=== PATIENT | female | born 1990 | race Caucasian/White ===

== ENCOUNTER 2017-11-14 23:24 | Inpatient (IN) | payer BC ==
[2017-11-14] MEDS ORDERED: Lidocaine 1% 50 ML MDV ONE (23:44)
[2017-11-14] MEDS ORDERED: Oxytocin/Lactated Ringers 10 UNIT/1,000 ML BAG IV ONE (23:44)
[2017-11-14] MEDS ORDERED: Lactated Ringers 2,000 ML ONE (23:44)
[2017-11-15] MEDS ORDERED: fentaNYL 100 MCG/2 ML SDV ONE (00:32)
[2017-11-15] MEDS ORDERED: Bupivacaine/fentaNYL/NS 100 ML Bag ONE (00:33)
[2017-11-15] MEDS ORDERED: Bupivacaine 0.25% 10 ML SDV ONE (02:00)
[2017-11-15] MEDS ORDERED: Ondansetron 4 MG/2 ML SDV IVPUSH PRN (02:35)
[2017-11-15] MEDS ORDERED: Nalbuphine 20 MG/1 ML Amp IVPUSH PRN (02:35)
[2017-11-15] MEDS ORDERED: Sodium Chloride 0.9% 10 ML Syringe FLUSH PRN (02:35)
--- NOTE | 2017-11-15 02:35 | PCM.LDHP ---
L&D History of Present Illness - General Date of Service: 11/14/17 Admit Problem/Dx: Admission Diagnosis/Problem Admission Diagnosis/Problem Source of Information: Patient History Limitations: Reports: No Limitations - History of Present Illness Introduction:: Patient is a 27 y/o who presents at 40 0/7 wks with concerns of ROM. Has been having bothersome contractions since that time. Otherwise doing well. - Related Data Allergies/Adverse Reactions: Allergies Allergy/AdvReac Type Severity Reaction Status Date / Time shellfish derived Allergy Swelling Verified 11/11/17 19:07 Past Medical History HEENT History: Reports: Other (See Below) (Retinal tear) - Past Surgical History HEENT Surgical History: Reports: Oral Surgery, Retinal Social & Family History - Tobacco Use Smoking Status *Q: Never Smoker - Alcohol Use Alcohol Use History: No - Recreational Drug Use Recreational Drug Use: No H&P Review of Systems - Review of Systems: Review Of Systems: See Below General: Reports: No Symptoms Pulmonary: Reports: No Symptoms Cardiovascular: Reports: No Symptoms Gastrointestinal: Reports: No Symptoms Genitourinary: Reports: No Symptoms Musculoskeletal: Reports: No Symptoms L&D Exam - Exam Exam: See Below - OB Specific Contraction Intensity: Moderate to Strong Movement: Active Heart Tones: Present Heart Tones per Min: 140 Heart Rate (FHR) Variability: Moderate (6-25 bmp) Presentation: Vertex - Mcgowan Score Mcgowan Score Cervix Position: Midposition Mcgowan Score Consistency: Soft Mcgowan Score Effacement: 51-70% Mcgowan Score Dilation: 3-4 cm Mcgowan Score 's Station: -1 ,0 Mcgowan Score Total: 9 - Exam General: Alert, Oriented, Cooperative Lungs: Clear to Auscultation, Normal Respiratory Effort Cardiovascular: Regular Rate, Regular Rhythm GI/Abdominal Exam: Soft, Non-Tender Genitourinary: Normal external exam Extremities: Normal Inspection Skin: Warm, Dry, Intact - Patient Data Result Diagrams: 11/14/17 23:40 11/14/17 23:40 - Problem List (1) 40 weeks gestation of SNOMED Code(s): 90890158 ICD Code: Z3A.40 - 40 WEEKS GESTATION OF Status: Acute Current Visit: Yes (2) Thick meconium stained amniotic fluid SNOMED Code(s): 049957428 ICD Code: P96.83 - MECONIUM STAINING Status: Acute Current Visit: Yes Problem List Initiated/Reviewed/Updated: Yes Assessment/Plan Comment:: 27 y/o at 40 0/7 wks presents with SROM * CBC and T&S * Patient with some mild range BP's. Will also order Creatinine, AST, ALT * GBS negative, no need for antibiotics * Allow patient to labor on her own, can add in augmentation if required * Pain management per patient preference * Anticipate
[2017-11-15] MEDS ORDERED: Oxytocin/Lactated Ringers 10 UNIT/1,000 ML BAG IV SCH (02:45)
[2017-11-15] MEDS ORDERED: Lactated Ringers 1,000 ML IV SCH (02:45)
[2017-11-15] MEDS ORDERED: Nalbuphine 20 MG/ML 1 ML Syringe IVPUSH PRN (09:41)
[2017-11-15] MEDS ORDERED: Misoprostol 200 MCG Tab ONE (11:38)
[2017-11-15] MEDS ORDERED: Misoprostol 200 MCG Tab PO ONE (11:57)
--- NOTE | 2017-11-15 11:59 | PCM.DEL ---
L & D Note - General Info Date of Service: 11/15/17 - Delivery Note Labor: Spontaneous Delivery Outcome: Livebirth Delivery Method: Spontaneous Vaginal Delivery-Single Delivery Mode: Vacuum Extraction Presentation: Right Occiput Anterior (BRYNN) Nuchal Cord: None Anesthesia Type: Epidural Amniotic Fluid Description: Meconium Stained Episiotomy Type: None Laceration: 2nd Degree Suture type: Vicryl Suture size: 2-0 Placenta: Intact, Spontaneous Cord: 3 Vessels Estimated Blood Loss: 400 Resuscitation Needed: Yes [place]: Suctioned, Bulb Syringe, Stimulated, Warmed, Mallie Used, Warmer Used Delivery Comments (Free Text/Narrative):: The patient was found to be compete and began pushing. After 2 hours of pushing she was offered pitocin augmentation to which she agreed. After 4 hours of pushing she was becoming more tried. Discussed risks/benefits of assisted delivery and she did desires to proceed. Patient was pushing in the dorsal lithotomy position. Sterile vaginal exam complete/complete/+2 station. head in BRYNN presentation. Maternal pushing effort was good and the pelvis was felt to be adequate for an instrument assisted delivery. Given exhaustion, the decision was made to proceed with vacuum assisted vaginal delivery. The mushroom cup was placed without difficulty with care to avoid the vaginal side patel. Pressure increased to 550 mg Hg at 1022. Subsequent vacuum assisted vaginal delivery with pushing. Delivery of head at 1027 after pulling with 4 consecutive contractions. Total pop offs 0. Suction was removed following delivery of the head. No nuchal cord present. The remainder of the delivered without difficulty. The umbilical cord was clamped and cut and the infant was placed on maternal abdomen. Inspection of the perineum following delivery with a 2nd degree perineal laceration. Vacuum Extractor Progress Note - Alternative Labor Strategies Considered Alternative Labor Strategies Considered:: Reports: Yes Strategies Considered:: Reports: Contraction Intensity Adequate, Position Changes Used to Facilitate Rotation & Descent, Empty Bladder Indications Considered:: Reports: Yes Indications:: Reports: Prolonged 2nd Stage Time Out:: Reports: Yes - Patient Prepared Patient Prepared:: Reports: Yes Informed Consent:: Reports: Verbal Risks: Reports: Yes Risks Include:: Reports: Laceration, Shoulder Dystocia, Maternal Injury Anesthesia/Analgesia Adequate:: Reports: Yes - Probability of Success High Probability of Success:: Reports: Yes Weight Estimated:: Reports: AGA Patient Diabetic:: Reports: No Pelvis Adequate:: Reports: Yes Asynclitic:: Reports: No - Application Time Maximum Application Time & Number of Pop-Offs Predetermined:: Reports: Yes Maximum Pressure Maintained in [place] (cm Hg):: 550 Total Application Time (min): *max=20min: 5 Number of Times Cup Disengaged:: 0 Type of Vacuum Used:: Reports: Cup: Mushroom type - Exit Strategy Exit strategy available:: Reports: Yes and resuscitation teams readily available:: Reports: Yes - General Info Date of Service: 11/15/17 - Patient Data Weight - Most Recent: 90.718 kg I&O - Last 24 Hours: Intake & Output 11/14/17 11/15/17 11/15/17 22:59 06:59 14:59 Intake Total 3000 Balance 3000 Lab Results Last 24 Hours: Laboratory Results - last 24 hr 11/14/17 11/14/17 11/14/17 Range/Units 23:40 23:40 23:40 WBC 12.29 H (3.98-10.04) K/mm3 RBC 4.37 (3.98-5.22) M/mm3 Hgb 12.8 (11.2-15.7) gm/L Hct 38.0 (34.1-44.9) % MCV 87.0 (79.4-94.8) fl MCH 29.3 (25.6-32.2) pg MCHC 33.7 (32.2-35.5) g/dl RDW Std Deviation 44.0 (36.4-46.3) fL Plt Count 165 L (182-369) K/mm3 MPV 11.2 (9.4-12.3) fl Neut % (Auto) 71.6 H (34.0-71.1) % Lymph % (Auto) 17.1 L (19.3-51.7) % [place] % (Auto) 10.4 (4.7-12.5) % Eos % (Auto) 0.3 L (0.7-5.8) Baso % (Auto) 0.2 (0.1-1.2) % Neut # (Auto) 8.79 H (1.56-6.13) K/mm3 Lymph # (Auto) 2.10 (1.18-3.74) K/mm3 [place] # (Auto) 1.28 H (0.24-0.36) K/mm3 Eos # (Auto) 0.04 (0.04-0.36) K/mm3 Baso # (Auto) 0.03 (0.01-0.08) K/mm3 Creatinine 0.9 (0.55-1.02) mg/dL Est Cr Clr Drug Dosing TNP Estimated GFR (MDRD) > 60 (>60) mL/min AST 16 (15-37) U/L ALT 18 (14-59) U/L Blood Type A NEGATIVE Gel Antibody Screen Positive Med Orders - Current: Current Medications Lactated Ringer's (Ringers, Lactated) 1,000 mls @ 100 mls/hr IV ASDIRECTED [facility]INOR Oxytocin/Lactated Ringer's (Pitocin In Lr 10 Units/1,000 Ml) 10 unit in 1,000 mls @ 500 mls/hr IV ASDIRECTED [facility] Misoprostol (Cytotec) 600 mcg PO ONETIME ONE Stop: 11/15/17 11:58 Nalbuphine HCl (Nubain) 10 mg IVPUSH Q2H PRN PRN Reason: Pain (moderate 4-6) Ondansetron HCl (Zofran) 4 mg IVPUSH Q4H PRN PRN Reason: Nausea/Vomiting Sodium Chloride (Saline Flush) 10 ml FLUSH ASDIRECTED PRN PRN Reason: Keep Vein Open Discontinued Medications Fentanyl (Sublimaze) Confirm Administered Dose 100 mcg .ROUTE .STK-MED ONE Stop: 11/15/17 00:33 Fentanyl/Bupivacaine HCl (Fentanyl/Bupivacaine/Ns 2 Mcg-0.125% 100 Ml) Confirm Administered Dose 100 ml .ROUTE .STK-MED ONE Stop: 11/15/17 00:34 Lactated Ringer's (Ringers, Lactated) Confirm Administered Dose 2,000 mls @ as directed .ROUTE .STK-MED ONE Stop: 11/14/17 23:45 Oxytocin/Lactated Ringer's (Pitocin In Lr 10 Units/1,000 Ml) Confirm Administered Dose 10 unit in 1,000 mls @ as directed IV .STK-MED ONE Stop: 11/14/17 23:45 Lidocaine HCl (Xylocaine 1%) Confirm Administered Dose 50 ml .ROUTE .STK-MED ONE Stop: 11/14/17 23:45 Misoprostol (Cytotec) Confirm Administered Dose 600 mcg .ROUTE .STK-MED ONE Stop: 11/15/17 11:39 Nalbuphine HCl (Nubain) 10 mg IVPUSH Q2H PRN PRN Reason: Pain (moderate 4-6) - Problem List & Annotations (1) 40 weeks gestation of SNOMED Code(s): 54464302 Code(s): Z3A.40 - 40 WEEKS GESTATION OF Status: Acute Current Visit: Yes (2) Thick meconium stained amniotic fluid SNOMED Code(s): 605051802 Code(s): P96.83 - MECONIUM STAINING Status: Acute Current Visit: Yes (3) Prolonged second stage of labor SNOMED Code(s): 72918477 Code(s): O63.1 - PROLONGED SECOND STAGE (OF LABOR) Status: Acute Current Visit: Yes (4) Vacuum extractor delivery, delivered SNOMED Code(s): 774414612 Code(s): O66.5 - ATTEMPTED APPLICATION OF VACUUM EXTRACTOR AND FORCEPS Status: Acute Current Visit: Yes - Problem List Review Problem List Initiated/Reviewed/Updated: Yes - My Orders Last 24 Hours: My Active Orders 11/15/17 02:35 Patient Status [ADT] Routine Activity as Tolerated [RC] PFP Communication Order [RC] ASDIRECTED Notify Provider [RC] PFP Notify Provider [RC] PRN Vital Signs [RC] PER UNIT ROUTINE Ondansetron [Zofran] 4 mg IVPUSH Q4H PRN Sodium Chloride 0.9% [Saline Flush] 10 ml FLUSH ASDIRECTED PRN Electronic Heart Tones Ext w TOCO [WOMSER] Routine Electronic Heart Tones Internal [WOMSER] Per Unit Routine Peripheral IV Insertion Adult [OM.PC] Routine Resuscitation Status Routine 11/15/17 02:45 Lactated Ringers [Ringers, Lactated] 1,000 ml IV ASDIRECTED Oxytocin/Lactated Ringers [Pitocin in LR 10 Units/1,000 ML] 10 unit in 1,000 ml IV ASDIRECTED 11/15/17 09:41 Nalbuphine [Nubain] 10 mg IVPUSH Q2H PRN 11/15/17 11:57 Patient Status Manage Transfer [TRANSFER] Routine Misoprostol [Cytotec] 600 mcg PO ONETIME ONE 11/15/17 Breakfast Regular Diet [DIET] - Assessment Assessment:: 27 y/o G1 now P1001 PPD#0 from [facility] at 40 1/7 wks - Plan Plan:: * Routine cares * Encourage breast feeding * Discharge home in 1-2 days
[2017-11-15] MEDS ORDERED: Benzocaine/Menthol 20%-0.5% Spray 56 GM Canister TOP PRN (13:34)
[2017-11-15] MEDS ORDERED: Lanolin 100% Cream 7 GM Tube TOP PRN (13:34)
[2017-11-15] MEDS ORDERED: Witch Hazel Medicated Pads 100/Jar TOP PRN (13:34)
[2017-11-15] MEDS ORDERED: Docusate Sodium 100 MG Cap PO PRN (13:34)
[2017-11-15] MEDS ORDERED: Acetaminophen 325 MG Tab PO PRN (13:34)
[2017-11-15] MEDS: Ibuprofen 600 MG Tab PO PRN ×2 (13:54→20:44)
[2017-11-16] MEDS: Ibuprofen 600 MG Tab PO PRN ×3 (05:33→18:31)
--- NOTE | 2017-11-16 06:45 | PCM.PNPP ---
- General Info Date of Service: 11/16/17 Functional Status: Reports: Pain Controlled, Tolerating Diet, Ambulating, Urinating - Review of Systems General: Reports: No Symptoms Pulmonary: Reports: No Symptoms Cardiovascular: Reports: No Symptoms Gastrointestinal: Reports: No Symptoms Genitourinary: Reports: No Symptoms Musculoskeletal: Reports: No Symptoms Neurological: Reports: No Symptoms - Patient Data Vital Signs - Most Recent: Last Vital Signs Temp 36.7 C 11/16/17 03:05 Pulse 76 11/16/17 03:05 Resp 20 11/15/17 20:43 BP 114/66 11/16/17 03:05 Pulse Ox 98 11/16/17 03:05 Weight - Most Recent: 90.718 kg I&O - Last 24 Hours: Intake & Output 11/15/17 11/15/17 11/16/17 14:59 22:59 06:59 Intake Total 3000 2000 Balance 3000 2000 Med Orders - Current: Current Medications Acetaminophen (Tylenol) 650 mg PO Q4H PRN PRN Reason: mild pain or fever Benzocaine/Menthol (Dermoplast Pain Relief [place]) 0 gm TOP ASDIRECTED PRN PRN Reason: Perineal Comfort Measure Last Admin: 11/15/17 13:54 Dose: 1 canister Docusate Sodium (Colace) 100 mg PO BID PRN PRN Reason: Constipation Emollient Ointment (Lansinoh Hpa) 0 gm TOP ASDIRECTED PRN PRN Reason: Sore Nipples Last Admin: 11/15/17 14:06 Dose: 1 tube Ibuprofen (Motrin) 600 mg PO Q4H PRN PRN Reason: Mild pain or fever Last Admin: 11/16/17 05:33 Dose: 600 mg [place] (Tucks) 1 pad TOP ASDIRECTED PRN PRN Reason: Hemorrhoid pain Last Admin: 11/15/17 13:53 Dose: 1 jar Discontinued Medications Fentanyl (Sublimaze) Confirm Administered Dose 100 mcg .ROUTE .STK-MED ONE Stop: 11/15/17 00:33 Fentanyl/Bupivacaine HCl (Fentanyl/Bupivacaine/Ns 2 Mcg-0.125% 100 Ml) Confirm Administered Dose 100 ml .ROUTE .STK-MED ONE Stop: 11/15/17 00:34 Last Admin: 11/15/17 14:10 Dose: 100 ml Lactated Ringer's (Ringers, Lactated) 1,000 mls @ 100 mls/hr IV ASDIRECTED [facility] Last Admin: 11/15/17 14:10 Dose: 100 mls/hr Oxytocin/Lactated Ringer's (Pitocin In Lr 10 Units/1,000 Ml) 10 unit in 1,000 mls @ 500 mls/hr IV ASDIRECTED [facility] Last Admin: 11/15/17 14:10 Dose: 500 mls/hr Lactated Ringer's (Ringers, Lactated) Confirm Administered Dose 2,000 mls @ as directed .ROUTE .STK-MED ONE Stop: 11/14/17 23:45 Oxytocin/Lactated Ringer's (Pitocin In Lr 10 Units/1,000 Ml) Confirm Administered Dose 10 unit in 1,000 mls @ as directed IV .STK-MED ONE Stop: 11/14/17 23:45 Lidocaine HCl (Xylocaine 1%) Confirm Administered Dose 50 ml .ROUTE .STK-MED ONE Stop: 11/14/17 23:45 Last Admin: 11/15/17 14:15 Dose: Not Given Misoprostol (Cytotec) Confirm Administered Dose 600 mcg .ROUTE .STK-MED ONE Stop: 11/15/17 11:39 Last Admin: 11/15/17 14:14 Dose: Not Given Misoprostol (Cytotec) 600 mcg PO ONETIME ONE Stop: 11/15/17 11:58 Last Admin: 11/15/17 11:46 Dose: 600 mcg Nalbuphine HCl (Nubain) 10 mg IVPUSH Q2H PRN PRN Reason: Pain (moderate 4-6) Nalbuphine HCl (Nubain) 10 mg IVPUSH Q2H PRN PRN Reason: Pain (moderate 4-6) Ondansetron HCl (Zofran) 4 mg IVPUSH Q4H PRN PRN Reason: Nausea/Vomiting Sodium Chloride (Saline Flush) 10 ml FLUSH ASDIRECTED PRN PRN Reason: Keep Vein Open - Interaction Disposition, : [place] in Room with Family Interaction: Holding Infant Feeding: Breastfed ; Nursed Well Support Person: - Recovery Exam Fundal Tone: Firm Fundal Level: At Umbilicus Fundal Placement: Right Lochia Amount: Small Lochia Color: Rubra/Red Episiotomy/Laceration: Approximated Bladder Status: Nonpalpable, Voiding Urinary Elimination: Voided - Exam General: Alert, Oriented, Cooperative GI/Abdominal Exam: Soft, Non-Tender Extremities: Normal Inspection Skin: Warm, Dry, Intact - Problem List & Annotations (1) 40 weeks gestation of SNOMED Code(s): 93230509 Code(s): Z3A.40 - 40 WEEKS GESTATION OF Status: Acute Current Visit: Yes (2) Thick meconium stained amniotic fluid SNOMED Code(s): 736813762 Code(s): P96.83 - MECONIUM STAINING Status: Acute Current Visit: Yes (3) Prolonged second stage of labor SNOMED Code(s): 40248060 Code(s): O63.1 - PROLONGED SECOND STAGE (OF LABOR) Status: Acute Current Visit: Yes (4) Vacuum extractor delivery, delivered SNOMED Code(s): 110470378 Code(s): O66.5 - ATTEMPTED APPLICATION OF VACUUM EXTRACTOR AND FORCEPS Status: Acute Current Visit: Yes - Problem List Review Problem List Initiated/Reviewed/Updated: Yes - My Orders Last 24 Hours: My Active Orders 11/15/17 13:34 Activity as Tolerated [RC] PER UNIT ROUTINE Vital Signs [RC] 03,09,15,21 Acetaminophen [Tylenol] 650 mg PO Q4H PRN Benzocaine/Menthol [Dermoplast Pain Relief [place]] See Dose Instructions TOP ASDIRECTED PRN Docusate Sodium [Colace] 100 mg PO BID PRN Ibuprofen [Motrin] 600 mg PO Q4H PRN Lanolin [Lansinoh HPA] See Dose Instructions TOP ASDIRECTED PRN [place] [Tucks] 1 pad TOP ASDIRECTED PRN Assess Lochia [WOMSER] Per Unit Routine Assess Uterine Involution [WOMSER] Per Unit Routine Breast Pump [WOMSER] Per Unit Routine Heat Therapy [OM.PC] PRN Ice Therapy [OM.PC] Per Unit Routine Perineal Care [OM.PC] Per Unit Routine Peripheral IV Discontinue [OM.PC] Routine Sitz Bath [OM.PC] Per Unit Routine 11/15/17 Lunch Regular Diet [DIET] 11/16/17 13:34 Heat Therapy [OM.PC] PRN - Assessment Assessment:: 27 y/o G1 now P1001 PPD#1 from [facility] at 40 1 wks - Plan Plan:: * Routine cares * Encourage breast feeding * Discharge home tomorrow
--- NOTE | 2017-11-16 07:50 | PCM48HPAN ---
Post Anesthesia Note - EVALUATION WITHIN 48HRS OF ANESTHETIC Vital Signs in Normal Range: Yes Patient Participated in Evaluation: Yes Respiratory Function Stable: Yes Airway Patent: Yes Cardiovascular Function Stable: Yes Hydration Status Stable: Yes Pain Control Satisfactory: Yes Nausea and Vomiting Control Satisfactory: Yes Mental Status Recovered: Yes Pulse Rate: 76 Resp Rate: 20 Temperature: 98.1 F Blood Pressure: 114/66
[2017-11-17] MEDS: Ibuprofen 600 MG Tab PO PRN (04:58)
--- NOTE | 2017-11-17 07:06 | PCM.PNPP ---
- General Info Date of Service: 11/17/17 Functional Status: Reports: Pain Controlled, Tolerating Diet, Ambulating, Urinating - Review of Systems General: Reports: No Symptoms Pulmonary: Reports: No Symptoms Cardiovascular: Reports: No Symptoms Gastrointestinal: Reports: No Symptoms Genitourinary: Reports: No Symptoms Musculoskeletal: Reports: No Symptoms - Patient Data Vital Signs - Most Recent: Last Vital Signs Temp 36.5 C 11/17/17 04:58 Pulse 69 11/16/17 17:18 Resp 14 11/16/17 17:18 BP 105/87 11/16/17 17:18 Pulse Ox 98 11/16/17 17:18 Weight - Most Recent: 90.718 kg I&O - Last 24 Hours: Intake & Output 11/16/17 11/17/17 11/17/17 22:59 06:59 14:59 Intake Total 0 Balance 0 Med Orders - Current: Current Medications Acetaminophen (Tylenol) 650 mg PO Q4H PRN PRN Reason: mild pain or fever Last Admin: 11/17/17 04:59 Dose: 650 mg Benzocaine/Menthol (Dermoplast Pain Relief [place]) 0 gm TOP ASDIRECTED PRN PRN Reason: Perineal Comfort Measure Last Admin: 11/15/17 13:54 Dose: 1 canister Docusate Sodium (Colace) 100 mg PO BID PRN PRN Reason: Constipation Emollient Ointment (Lansinoh Hpa) 0 gm TOP ASDIRECTED PRN PRN Reason: Sore Nipples Last Admin: 11/15/17 14:06 Dose: 1 tube Ibuprofen (Motrin) 600 mg PO Q4H PRN PRN Reason: Mild pain or fever Last Admin: 11/17/17 04:58 Dose: 600 mg [place] (Tucks) 1 pad TOP ASDIRECTED PRN PRN Reason: Hemorrhoid pain Last Admin: 11/15/17 13:53 Dose: 1 jar Discontinued Medications Bupivacaine HCl (Sensorcaine-Mpf 0.25%) 10 ml .ROUTE .STK-MED ONE Stop: 11/15/17 02:01 Fentanyl (Sublimaze) Confirm Administered Dose 100 mcg .ROUTE .STK-MED ONE Stop: 11/15/17 00:33 Fentanyl/Bupivacaine HCl (Fentanyl/Bupivacaine/Ns 2 Mcg-0.125% 100 Ml) Confirm Administered Dose 100 ml .ROUTE .STK-MED ONE Stop: 11/15/17 00:34 Last Admin: 11/15/17 14:10 Dose: 100 ml Lactated Ringer's (Ringers, Lactated) 1,000 mls @ 100 mls/hr IV ASDIRECTED [facility] Last Admin: 11/15/17 14:10 Dose: 100 mls/hr Oxytocin/Lactated Ringer's (Pitocin In Lr 10 Units/1,000 Ml) 10 unit in 1,000 mls @ 500 mls/hr IV ASDIRECTED [facility] Last Admin: 11/15/17 14:10 Dose: 500 mls/hr Lactated Ringer's (Ringers, Lactated) Confirm Administered Dose 2,000 mls @ as directed .ROUTE .STK-MED ONE Stop: 11/14/17 23:45 Oxytocin/Lactated Ringer's (Pitocin In Lr 10 Units/1,000 Ml) Confirm Administered Dose 10 unit in 1,000 mls @ as directed IV .STK-MED ONE Stop: 11/14/17 23:45 Lidocaine HCl (Xylocaine 1%) Confirm Administered Dose 50 ml .ROUTE .STK-MED ONE Stop: 11/14/17 23:45 Last Admin: 11/15/17 14:15 Dose: Not Given Misoprostol (Cytotec) Confirm Administered Dose 600 mcg .ROUTE .STK-MED ONE Stop: 11/15/17 11:39 Last Admin: 11/15/17 14:14 Dose: Not Given Misoprostol (Cytotec) 600 mcg PO ONETIME ONE Stop: 11/15/17 11:58 Last Admin: 11/15/17 11:46 Dose: 600 mcg Nalbuphine HCl (Nubain) 10 mg IVPUSH Q2H PRN PRN Reason: Pain (moderate 4-6) Nalbuphine HCl (Nubain) 10 mg IVPUSH Q2H PRN PRN Reason: Pain (moderate 4-6) Ondansetron HCl (Zofran) 4 mg IVPUSH Q4H PRN PRN Reason: Nausea/Vomiting Sodium Chloride (Saline Flush) 10 ml FLUSH ASDIRECTED PRN PRN Reason: Keep Vein Open - Interaction Disposition, : [place] in Room with Family Infant Interaction: Holding Infant Feeding: Breastfed ; Nursed Well Support Person: - Recovery Exam Fundal Tone: Firm Fundal Level: At Umbilicus Fundal Placement: Midline Lochia Amount: Scant Lochia Color: Rubra/Red Perineum Description: Other (see below) Other Perinuem Description: 2nd degree lac with repair Episiotomy/Laceration: Approximated Bladder Status: Voiding Urinary Elimination: Voided - Exam General: Alert, Oriented, Cooperative GI/Abdominal Exam: Soft, Non-Tender Extremities: Normal Inspection Skin: Warm, Dry, Intact - Problem List & Annotations (1) 40 weeks gestation of SNOMED Code(s): 78710739 Code(s): Z3A.40 - 40 WEEKS GESTATION OF Status: Acute Current Visit: Yes (2) Thick meconium stained amniotic fluid SNOMED Code(s): 441846359 Code(s): P96.83 - MECONIUM STAINING Status: Acute Current Visit: Yes (3) Prolonged second stage of labor SNOMED Code(s): 26029024 Code(s): O63.1 - PROLONGED SECOND STAGE (OF LABOR) Status: Acute Current Visit: Yes (4) Vacuum extractor delivery, delivered SNOMED Code(s): 817191993 Code(s): O66.5 - ATTEMPTED APPLICATION OF VACUUM EXTRACTOR AND FORCEPS Status: Acute Current Visit: Yes - Problem List Review Problem List Initiated/Reviewed/Updated: Yes - My Orders Last 24 Hours: My Active Orders 11/16/17 13:34 Heat Therapy [OM.PC] PRN - Assessment Assessment:: 27 y/o G1 now P1001 PPD#2 from [facility] at 40 1/7 wks - Plan Plan:: * Routine cares * Encourage breast feeding * Discharge home today
--- NOTE | 2017-11-17 07:07 | PCM.DCSUM1 ---
Discharge Summary - Discharge Data Discharge Date: 11/17/17 Discharge Disposition: Home, Self-Care 01 Condition: Good - Discharge Diagnosis/Problem(s) (1) 40 weeks gestation of SNOMED Code(s): 07534866 ICD Code: Z3A.40 - 40 WEEKS GESTATION OF Status: Acute Current Visit: Yes (2) Thick meconium stained amniotic fluid SNOMED Code(s): 362052716 ICD Code: P96.83 - MECONIUM STAINING Status: Acute Current Visit: Yes (3) Prolonged second stage of labor SNOMED Code(s): 98588840 ICD Code: O63.1 - PROLONGED SECOND STAGE (OF LABOR) Status: Acute Current Visit: Yes (4) Vacuum extractor delivery, delivered SNOMED Code(s): 077845660 ICD Code: O66.5 - ATTEMPTED APPLICATION OF VACUUM EXTRACTOR AND FORCEPS Status: Acute Current Visit: Yes - Patient Summary/Data Complications: None Consults: None Recommended Follow-up Testing/Procedures: Follow up in 3-6 weeks for check Hospital Course: Patient is a 27 y/o who presented at 40 0/7 wks with SROM. She progressed well to complete dilation without the need for augmentation. When she did start pushing she required Pitocin augmentation after approximately 2 hours of pushing. At approximately 4 hours of pushing she was offered a trial of vacuum extraction given maternal exhaustion and she consented to this. This was successful. See delivery note for full details. she did well and was discharged home on day #2 - Patient Instructions Diet: Regular Diet as Tolerated Activity: As Tolerated Activity, Other: Pelvic Rest for 6 weeks Driving: May Drive Today Showering/Bathing: May Shower Showering/Bathing, Other: May Bathe Notify Provider of: Fever, Increased Pain, Swelling and Redness, Drainage, Nausea and/or Vomiting - Discharge Plan Home Medications: Home Meds Docusate Sodium [Colace] 100 mg PO BID PRN cap 11/16/17 [Rx] Ibuprofen [IJD: Ibuprofen] 600 mg PO Q4H PRN tablet 11/16/17 [Rx] Elyse Corcoran [Tucks] 1 pad TOP ASDIRECTED PRN pad 11/16/17 [Rx] Referrals: Mary Moreno MD [Physician] - (3-6 weeks for check ) - Discharge Summary/Plan Comment DC Time >30 min.: No - Patient Data Vitals - Most Recent: Last Vital Signs Temp 36.5 C 11/17/17 04:58 Pulse 69 11/16/17 17:18 Resp 14 11/16/17 17:18 BP 105/87 11/16/17 17:18 Pulse Ox 98 11/16/17 17:18 Weight - Most Recent: 90.718 kg I&O - Last 24 hours: Intake & Output 11/16/17 11/17/17 11/17/17 22:59 06:59 14:59 Intake Total 0 Balance 0 Med Orders - Current: Current Medications Acetaminophen (Tylenol) 650 mg PO Q4H PRN PRN Reason: mild pain or fever Last Admin: 11/17/17 04:59 Dose: 650 mg Benzocaine/Menthol (Dermoplast Pain Relief [place]) 0 gm TOP ASDIRECTED PRN PRN Reason: Perineal Comfort Measure Last Admin: 11/15/17 13:54 Dose: 1 canister Docusate Sodium (Colace) 100 mg PO BID PRN PRN Reason: Constipation Emollient Ointment (Lansinoh Hpa) 0 gm TOP ASDIRECTED PRN PRN Reason: Sore Nipples Last Admin: 11/15/17 14:06 Dose: 1 tube Ibuprofen (Motrin) 600 mg PO Q4H PRN PRN Reason: Mild pain or fever Last Admin: 11/17/17 04:58 Dose: 600 mg [place] (Tucks) 1 pad TOP ASDIRECTED PRN PRN Reason: Hemorrhoid pain Last Admin: 11/15/17 13:53 Dose: 1 jar Discontinued Medications Bupivacaine HCl (Sensorcaine-Mpf 0.25%) 10 ml .ROUTE .STK-MED ONE Stop: 11/15/17 02:01 Fentanyl (Sublimaze) Confirm Administered Dose 100 mcg .ROUTE .STK-MED ONE Stop: 11/15/17 00:33 Fentanyl/Bupivacaine HCl (Fentanyl/Bupivacaine/Ns 2 Mcg-0.125% 100 Ml) Confirm Administered Dose 100 ml .ROUTE .STK-MED ONE Stop: 11/15/17 00:34 Last Admin: 11/15/17 14:10 Dose: 100 ml Lactated Ringer's (Ringers, Lactated) 1,000 mls @ 100 mls/hr IV ASDIRECTED [facility] Last Admin: 11/15/17 14:10 Dose: 100 mls/hr Oxytocin/Lactated Ringer's (Pitocin In Lr 10 Units/1,000 Ml) 10 unit in 1,000 mls @ 500 mls/hr IV ASDIRECTED [facility] Last Admin: 11/15/17 14:10 Dose: 500 mls/hr Lactated Ringer's (Ringers, Lactated) Confirm Administered Dose 2,000 mls @ as directed .ROUTE .STK-MED ONE Stop: 11/14/17 23:45 Oxytocin/Lactated Ringer's (Pitocin In Lr 10 Units/1,000 Ml) Confirm Administered Dose 10 unit in 1,000 mls @ as directed IV .STK-MED ONE Stop: 11/14/17 23:45 Lidocaine HCl (Xylocaine 1%) Confirm Administered Dose 50 ml .ROUTE .STK-MED ONE Stop: 11/14/17 23:45 Last Admin: 11/15/17 14:15 Dose: Not Given Misoprostol (Cytotec) Confirm Administered Dose 600 mcg .ROUTE .STK-MED ONE Stop: 11/15/17 11:39 Last Admin: 11/15/17 14:14 Dose: Not Given Misoprostol (Cytotec) 600 mcg PO ONETIME ONE Stop: 11/15/17 11:58 Last Admin: 11/15/17 11:46 Dose: 600 mcg Nalbuphine HCl (Nubain) 10 mg IVPUSH Q2H PRN PRN Reason: Pain (moderate 4-6) Nalbuphine HCl (Nubain) 10 mg IVPUSH Q2H PRN PRN Reason: Pain (moderate 4-6) Ondansetron HCl (Zofran) 4 mg IVPUSH Q4H PRN PRN Reason: Nausea/Vomiting Sodium Chloride (Saline Flush) 10 ml FLUSH ASDIRECTED PRN PRN Reason: Keep Vein Open
== END 2017-11-17 10:55 | disposition home or self-care (01) | DRG 560 ==
LOC: JD.OB 23:24 → OBSVTOIN 11-15 11:28 → JD.OB 11-15 11:28
PROVIDERS: ADMIT Obstetrics & Gynecology; ATTEND Obstetrics & Gynecology
PROC: 10D07Z8 Extraction of Products of Conception, Other, Via Natural or Artificial Opening (ICD-10-PCS; principal; 2017-11-15)
PROC: 0KQM0ZZ Repair Perineum Muscle, Open Approach (ICD-10-PCS; 2017-11-15)
PROC: 00HU33Z Insertion of Infusion Device into Spinal Canal, Percutaneous Approach (ICD-10-PCS; 2017-11-15)
PROC: 3E0R3BZ Introduction of Anesthetic Agent into Spinal Canal, Percutaneous Approach (ICD-10-PCS; 2017-11-15)
DX: O77.0 Labor and delivery complicated by meconium in amniotic fluid (principal); O63.1 Prolonged second stage (of labor); O75.81 Maternal exhaustion complicating labor and delivery; Z3A.40 40 weeks gestation of pregnancy; Z37.0 Single live birth; Z91.013 Allergy to seafood; O70.1 Second degree perineal laceration during delivery
CPT/HCPCS: 01967; 36415; 51701; 51702; 59025; 59300; 59409; 82565; 84450; 84460; 85025; A9270-GY; J2590; J3010; J7120

== ENCOUNTER 2019-09-20 17:52 | Inpatient (IN) | payer BC ==
[~2019-09-20 17:52] MED LIST: Bupivacaine 0.25% 10 ML SDV ONE
[2019-09-20] MEDS ORDERED: Ondansetron 4 MG/2 ML SDV IVPUSH PRN (18:26)
[2019-09-20] MEDS ORDERED: Sodium Chloride 0.9% 10 ML Syringe FLUSH PRN (18:26)
[2019-09-20] MEDS ORDERED: Oxytocin/Lactated Ringers 10 UNIT/1,000 ML BAG IV SCH ×2 (18:30)
--- NOTE | 2019-09-20 19:33 | PCM.LDHP ---
L&D History of Present Illness - General Date of Service: 09/20/19 Admit Problem/Dx: Patient Status Order with Admit Dx/Problem 09/20/19 18:27 Patient Status [ADT] Routine Admission Diagnosis/Problem Admission Diagnosis/Problem Spontaneous rupture of membranes Source of Information: Patient History Limitations: Reports: No Limitations - History of Present Illness Introduction:: Patient is a 29 y/o at 39 2/7 wks who presented to clinic today for routine appointment and noted concerns of leakage/drainage over the last 2 days. Amnisure done and positive. Doing well currently. No contractions. No other concerns. - Related Data Allergies/Adverse Reactions: Allergies Allergy/AdvReac Type Severity Reaction Status Date / Time shellfish derived Allergy Swelling Verified 11/11/17 19:07 Home Medications: Home Meds [id number]/Iron Fumarate/FA/DSS [ 19 Tablet] 1 tab PO DAILY 09/20/19 [ History] Past Medical History HEENT History: Reports: Other (See Below) (Retinal tear) Other HEENT History: Retinal reconstruction - Past Surgical History HEENT Surgical History: Reports: Oral Surgery, Retinal Social & Family History - Family History Family Medical History: Unobtainable - Tobacco Use Smoking Status *Q: Never Smoker - Caffeine Use Caffeine Use: Reports: Coffee - Alcohol Use Alcohol Use History: No - Recreational Drug Use Recreational Drug Use: No H&P Review of Systems - Review of Systems: Review Of Systems: See Below General: Reports: No Symptoms Pulmonary: Reports: No Symptoms Cardiovascular: Reports: No Symptoms Gastrointestinal: Reports: No Symptoms Genitourinary: Reports: No Symptoms Musculoskeletal: Reports: No Symptoms Psychiatric: Reports: No Symptoms L&D Exam - Exam Exam: See Below - OB Specific Contraction Intensity: Moderate Movement: Active Heart Tones: Present Heart Tones per Min: 140 Heart Rate (FHR) Variability: Moderate (6-25 bmp) Presentation: Vertex - Mcgowan Score Mcgowan Score Cervix Position: Midposition Mcgowan Score Consistency: Soft Mcgowan Score Effacement: 51-70% Mcgowan Score Dilation: 3-4 cm Mcgowan Score 's Station: -2 Mcgowan Score Total: 8 - Exam General: Alert, Oriented, Cooperative Lungs: Clear to Auscultation, Normal Respiratory Effort Cardiovascular: Regular Rate, Regular Rhythm GI/Abdominal Exam: Soft, Non-Tender Genitourinary: Normal external exam Extremities: Normal Inspection Skin: Warm, Dry, Intact - Patient Data Lab Results Last 24 hrs: Laboratory Results - last 24 hr 09/20/19 Range/Units 18:40 WBC 8.85 (3.98-10.04) K/mm3 RBC 4.29 (3.98-5.22) M/mm3 Hgb 12.1 (11.2-15.7) gm/dl Hct 37.5 (34.1-44.9) % MCV 87.4 (79.4-94.8) fl MCH 28.2 (25.6-32.2) pg MCHC 32.3 (32.2-35.5) g/dl RDW Std Deviation 45.7 (36.4-46.3) fL Plt Count 166 L (182-369) K/mm3 MPV 11.3 (9.4-12.3) fl Result Diagrams: 09/20/19 18:40 - Problem List (1) 39 weeks gestation of SNOMED Code(s): 76617139 ICD Code: Z3A.39 - 39 WEEKS GESTATION OF Status: Acute Current Visit: Yes (2) Prolonged rupture of membranes, greater than 24 hours, delivered SNOMED Code(s): 17890032, 649183352 ICD Code: O42.10 - DERICK ROM, ONSET LABOR > 24 HR FOL RUPT, UNSP WEEKS OF GEST Status: Acute Current Visit: Yes (3) Gestational diabetes SNOMED Code(s): 83741950 ICD Code: O24.419 - GESTATIONAL DIABETES MELLITUS IN , UNSP CONTROL Status: Acute Current Visit: Yes Qualifiers: Gestational diabetes mellitus control: diet-controlled Trimester: third trimester Qualified Code(s): O24.410 - Gestational diabetes mellitus in , diet controlled (4) Rh negative status during SNOMED Code(s): 600319792 ICD Code: O26.899 - OTH RELATED CONDITIONS, UNSPECIFIED TRIMESTER; Z67.91 - UNSPECIFIED BLOOD TYPE, RH NEGATIVE Status: Acute Current Visit: Yes Qualifiers: Trimester: third trimester Qualified Code(s): O26.893 - Other specified related conditions, third trimester; Z67.91 - Unspecified blood type, Rh negative Problem List Initiated/Reviewed/Updated: Yes Orders Last 24hrs: Active Orders 24 hr Category Date Time Status Patient Status [ADT] Routine ADT 09/20/19 18:27 Active Activity as Tolerated [RC] PFP Care 09/20/19 18:27 Active Blood Glucose Check, Bedside [RC] Q4H Care 09/20/19 18:29 Active Communication Order [RC] ASDIRECTED Care 09/20/19 18:27 Active Communication Order [RC] ASDIRECTED Care 09/20/19 18:27 Active Communication Order [RC] ASDIRECTED Care 09/20/19 18:27 Active Communication Order [RC] ASDIRECTED Care 09/20/19 18:27 Active Heart Tones [RC] ASDIRECTED Care 09/20/19 18:28 Active Monitoring [RC] INTERMITTENT Care 09/20/19 18:27 Active Non Stress Test [RC] PER UNIT ROUTINE Care 09/20/19 18:27 Active Notify Provider [RC] ASDIRECTED Care 09/20/19 18:27 Active Notify Provider [RC] PRN Care 09/20/19 18:27 Active Peripheral IV Care [RC] . DIRECTED Care 09/20/19 18:28 Active Vaginal Exam [RC] ASDIRECTED Care 09/20/19 18:27 Active Vital Signs [RC] ASDIRECTED Care 09/20/19 18:27 Active Regular Diet [DIET] Diet 09/20/19 Dinner Active RAPID PLASMA REAGIN,RPR [CHEM] Routine Lab 09/20/19 18:40 Received TYPE AND SCREEN [BBK] Routine Lab 09/20/19 18:40 Received Lactated Ringers [Ringers, Lactated] 1,000 ml Med 09/20/19 18:30 Active IV ASDIRECTED Ondansetron [Zofran] Med 09/20/19 18:26 Active 4 mg IVPUSH Q4H PRN Oxytocin/Lactated Ringers [Pitocin in LR 10 Units/1,000 Med 09/20/19 18:30 Active ML] 10 unit in 1,000 ml IV .CONTINUOUS Oxytocin/Lactated Ringers [Pitocin in LR 10 Units/1,000 Med 09/20/19 18:30 Active ML] 10 unit in 1,000 ml IV TITRATE Sodium Chloride 0.9% [Saline Flush] Med 09/20/19 18:26 Active 10 ml FLUSH ASDIRECTED PRN Electronic Heart Tones Ext w TOCO [WOMSER] Oth 09/20/19 18:27 Ordered Routine Electronic Heart Tones Internal [WOMSER] Per Unit Oth 09/20/19 18:27 Ordered Routine Peripheral IV Insertion Adult [OM.PC] Routine Oth 09/20/19 18:27 Ordered Resuscitation Status Routine Resus Stat 09/20/19 18:26 Ordered Medication Orders Lactated Ringer's (Ringers, Lactated) 1,000 mls @ 40 mls/hr IV ASDIRECTED ELINOR Oxytocin/Lactated Ringer's (Pitocin In Lr 10 Units/1,000 Ml) 10 unit in 1,000 mls @ 12 mls/hr IV TITRATE ELINOR; Protocol Oxytocin/Lactated Ringer's (Pitocin In Lr 10 Units/1,000 Ml) 10 unit in 1,000 mls @ 500 mls/hr IV .CONTINUOUS ELINOR Ondansetron HCl (Zofran) 4 mg IVPUSH Q4H PRN PRN Reason: Nausea/Vomiting Sodium Chloride (Saline Flush) 10 ml FLUSH ASDIRECTED PRN PRN Reason: Keep Vein Open Assessment/Plan Comment:: * Labs done * GBS negative * Will start pitocin given unknown duration of ROM * Rh negative, will assess blood type following delivery * Blood sugars q 4 hrs * Anticipate
[2019-09-20] MEDS: Lactated Ringers 1,000 ML IV SCH (20:21)
[2019-09-21] MEDS: Lactated Ringers 1,000 ML IV SCH (02:12)
[2019-09-21] MEDS ORDERED: Bupivacaine/fentaNYL/NS 100 ML Bag EPIDUR PRN (02:12)
[2019-09-21] MEDS ORDERED: diphenhydrAMINE 50 MG/ML SDV IVPUSH PRN (02:12)
[2019-09-21] MEDS ORDERED: fentaNYL 100 MCG/2 ML SDV EPIDUR PRN (02:12)
[2019-09-21] MEDS ORDERED: ePHEDrine 50 MG/ML SDV IVPUSH PRN (02:12)
--- NOTE | 2019-09-21 02:45 | PCM.PREANE ---
Preanesthetic Assessment - Procedure Proposed Procedure: epidural - Anesthesia/Transfusion/Family Hx Anesthesia History: Prior Anesthesia Without Reaction Family History of Anesthesia Reaction: No Transfusion History: No Prior Transfusion(s) - Review of Systems General: Fatigue Pulmonary: No Symptoms Cardiovascular: No Symptoms Gastrointestinal: Abdominal Pain (labor) Neurological: No Symptoms Other: Reports: None - Physical Assessment Vital Signs: Last Vital Signs Temp 36.7 C 09/20/19 18:27 Pulse 87 09/20/19 18:27 Resp 16 09/20/19 18:27 BP 134/74 09/20/19 18:27 Pulse Ox Height: 1.63 m Weight: 90.945 kg ASA Class: 2 Mental Status: Alert & Oriented x3 Airway Class: Mallampati = 1 Dentition: Reports: Normal Dentition Thyro-Mental Finger Breadths: 3 Mouth Opening Finger Breadths: 3 ROM/Head Extension: Full Lungs: Clear to Auscultation, Normal Respiratory Effort Cardiovascular: Regular Rate, Regular Rhythm - Lab Values: Laboratory Last Values WBC 8.85 K/mm3 (3.98-10.04) 09/20/19 18:40 RBC 4.29 M/mm3 (3.98-5.22) 09/20/19 18:40 Hgb 12.1 gm/dl (11.2-15.7) 09/20/19 18:40 Hct 37.5 % (34.1-44.9) 09/20/19 18:40 MCV 87.4 fl (79.4-94.8) 09/20/19 18:40 MCH 28.2 pg (25.6-32.2) 09/20/19 18:40 MCHC 32.3 g/dl (32.2-35.5) 09/20/19 18:40 RDW Std Deviation 45.7 fL (36.4-46.3) 09/20/19 18:40 Plt Count 166 K/mm3 (182-369) L 09/20/19 18:40 MPV 11.3 fl (9.4-12.3) 09/20/19 18:40 POC Glucose 81 mg/dL (70-105) 09/21/19 00:47 RPR Non-reactive (NONREACTIVE) 09/20/19 18:40 Blood Type A NEGATIVE 09/20/19 18:40 Gel Antibody Screen Positive 09/20/19 18:40 - Allergies Allergies/Adverse Reactions: Allergies Allergy/AdvReac Type Severity Reaction Status Date / Time shellfish derived Allergy Swelling Verified 11/11/17 19:07 - Anesthesia Plan Pre-Op Medication Ordered: None - Acknowledgements Anesthesia Type Planned: Epidural Pt an Appropriate Candidate for the Planned Anesthesia: Yes Alternatives and Risks of Anesthesia Discussed w Pt/Guardian: Yes Pt/Guardian Understands and Agrees with Anesthesia Plan: Yes PreAnesthesia Questionnaire HEENT History: Reports: Other (See Below) (Retinal tear) Other HEENT History: Retinal reconstruction Gastrointestinal History: Reports: GERD 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: Endocrine/Metabolic History: Reports: Diabetes, Gestational - Infectious Disease History Infectious Disease History: Reports: Chicken Pox - Past Surgical History HEENT Surgical History: Reports: Oral Surgery, Retinal - SUBSTANCE USE Smoking Status *Q: Never Smoker Second Hand Smoke Exposure: No Recreational Drug Use History: No - HOME MEDS Home Medications: Home Meds [id number]/Iron Fumarate/FA/DSS [ 19 Tablet] 1 tab PO DAILY 09/20/19 [ History] - CURRENT (IN HOUSE) MEDS Current Meds: Current Medications Diphenhydramine HCl (Benadryl) 25 mg IVPUSH Q6H PRN PRN Reason: Itching Ephedrine Sulfate (Ephedrine Sulfate) 5 mg IVPUSH ASDIRECTED PRN PRN Reason: HYPOTENTSION Fentanyl (Sublimaze) 100 mcg EPIDUR Q3H PRN PRN Reason: Pain Last Admin: 09/21/19 02:26 Dose: 100 mcg Fentanyl/Bupivacaine HCl (Fentanyl/Bupivacaine/Ns 2 Mcg-0.125% 100 Ml) 100 ml EPIDUR CONTINUOUS PRN PRN Reason: Pain Lactated Ringer's (Ringers, Lactated) 1,000 mls @ 40 mls/hr IV ASDIRECTED ELINOR Last Admin: 09/21/19 02:12 Dose: 40 mls/hr Oxytocin/Lactated Ringer's (Pitocin In Lr 10 Units/1,000 Ml) 10 unit in 1,000 mls @ 12 mls/hr IV TITRATE ELINOR; Protocol Last Admin: 09/20/19 20:26 Dose: 2 munits/min, 12 mls/hr Oxytocin/Lactated Ringer's (Pitocin In Lr 10 Units/1,000 Ml) 10 unit in 1,000 mls @ 500 mls/hr IV .CONTINUOUS ELINOR Ondansetron HCl (Zofran) 4 mg IVPUSH Q4H PRN PRN Reason: Nausea/Vomiting Sodium Chloride (Saline Flush) 10 ml FLUSH ASDIRECTED PRN PRN Reason: Keep Vein Open
--- NOTE | 2019-09-21 03:33 | PCM.DEL ---
L & D Note - General Info Date of Service: 09/21/19 - Delivery Note Labor: Augmented by Oxytocin Delivery Outcome: Livebirth Delivery Method: Spontaneous Vaginal Delivery-Single Delivery Mode: Spontaneous Presentation: Left Occiput Anterior (MARIA VICTORIA) Nuchal Cord: None Anesthesia Type: Epidural Amniotic Fluid Description: Clear Episiotomy Type: None Laceration: 2nd Degree Suture type: Vicryl Suture size: 2-0 Placenta: Intact, Spontaneous Cord: 3 Vessels Estimated Blood Loss: 300 Resuscitation Needed: Yes : Bulb Syringe, Stimulated, Warmed, Valentine Used, Warmer Used Delivery Comments (Free Text/Narrative):: Patient found to be complete and began pushing. With maternal pushing effort head delivered from MARIA VICTORIA presentation. No nuchal cord present. With gentle downward traction shoulders and body delivered. Infant placed on maternal abdomen. Cord clamped and cut. Cord blood obtained. Placenta allowed time to separate and expelled intact. Inspection of the perineum showed a 2nd degree laceration which was repaired with a 2-0 vicryl in the typical fashion. - General Info Date of Service: 09/21/19 - Patient Data Vitals - Most Recent: Last Vital Signs Temp 36.7 C 09/20/19 18:27 Pulse 87 09/20/19 18:27 Resp 16 09/20/19 18:27 BP 134/74 09/20/19 18:27 Pulse Ox Weight - Most Recent: 90.945 kg Lab Results Last 24 Hours: Laboratory Results - last 24 hr 09/20/19 09/20/19 09/20/19 Range/Units 18:40 18:40 18:40 WBC 8.85 (3.98-10.04) K/mm3 RBC 4.29 (3.98-5.22) M/mm3 Hgb 12.1 (11.2-15.7) gm/dl Hct 37.5 (34.1-44.9) % MCV 87.4 (79.4-94.8) fl MCH 28.2 (25.6-32.2) pg MCHC 32.3 (32.2-35.5) g/dl RDW Std Deviation 45.7 (36.4-46.3) fL Plt Count 166 L (182-369) K/mm3 MPV 11.3 (9.4-12.3) fl POC Glucose (70-105) mg/dL RPR Non-reactive (NONREACTIVE) Blood Type A NEGATIVE Gel Antibody Screen Positive 09/20/19 09/21/19 Range/Units 20:34 00:47 WBC (3.98-10.04) K/mm3 RBC (3.98-5.22) M/mm3 Hgb (11.2-15.7) gm/dl Hct (34.1-44.9) % MCV (79.4-94.8) fl MCH (25.6-32.2) pg MCHC (32.2-35.5) g/dl RDW Std Deviation (36.4-46.3) fL Plt Count (182-369) K/mm3 MPV (9.4-12.3) fl POC Glucose 78 81 (70-105) mg/dL RPR (NONREACTIVE) Blood Type Gel Antibody Screen Med Orders - Current: Current Medications Diphenhydramine HCl (Benadryl) 25 mg IVPUSH Q6H PRN PRN Reason: Itching Ephedrine Sulfate (Ephedrine Sulfate) 5 mg IVPUSH ASDIRECTED PRN PRN Reason: HYPOTENTSION Fentanyl (Sublimaze) 100 mcg EPIDUR Q3H PRN PRN Reason: Pain Last Admin: 09/21/19 02:26 Dose: 100 mcg Fentanyl/Bupivacaine HCl (Fentanyl/Bupivacaine/Ns 2 Mcg-0.125% 100 Ml) 100 ml EPIDUR CONTINUOUS PRN PRN Reason: Pain Lactated Ringer's (Ringers, Lactated) 1,000 mls @ 40 mls/hr IV ASDIRECTED ELINOR Last Admin: 09/21/19 02:12 Dose: 40 mls/hr Oxytocin/Lactated Ringer's (Pitocin In Lr 10 Units/1,000 Ml) 10 unit in 1,000 mls @ 12 mls/hr IV TITRATE ELINOR; Protocol Last Admin: 09/20/19 20:26 Dose: 2 munits/min, 12 mls/hr Oxytocin/Lactated Ringer's (Pitocin In Lr 10 Units/1,000 Ml) 10 unit in 1,000 mls @ 500 mls/hr IV .CONTINUOUS ELINOR Ondansetron HCl (Zofran) 4 mg IVPUSH Q4H PRN PRN Reason: Nausea/Vomiting Sodium Chloride (Saline Flush) 10 ml FLUSH ASDIRECTED PRN PRN Reason: Keep Vein Open - Problem List & Annotations (1) 39 weeks gestation of SNOMED Code(s): 39911654 Code(s): Z3A.39 - 39 WEEKS GESTATION OF Status: Acute Current Visit: Yes (2) Gestational diabetes SNOMED Code(s): 05995945 Code(s): O24.419 - GESTATIONAL DIABETES MELLITUS IN , UNSP CONTROL Status: Acute Current Visit: Yes Qualifiers: Gestational diabetes mellitus control: diet-controlled Trimester: third trimester Qualified Code(s): O24.410 - Gestational diabetes mellitus in , diet controlled (3) Prolonged rupture of membranes, greater than 24 hours, delivered SNOMED Code(s): 02665164, 617051584 Code(s): O42.10 - DERICK ROM, ONSET LABOR > 24 HR FOL RUPT, UNSP WEEKS OF GEST Status: Acute Current Visit: Yes (4) Rh negative status during SNOMED Code(s): 456792631 Code(s): O26.899 - OTH RELATED CONDITIONS, UNSPECIFIED TRIMESTER; Z67.91 - UNSPECIFIED BLOOD TYPE, RH NEGATIVE Status: Acute Current Visit: Yes Qualifiers: Trimester: third trimester Qualified Code(s): O26.893 - Other specified related conditions, third trimester; Z67.91 - Unspecified blood type, Rh negative (5) Vaginal delivery SNOMED Code(s): 231212630 Code(s): O80 - ENCOUNTER FOR FULL-TERM UNCOMPLICATED DELIVERY Status: Acute Current Visit: Yes - Problem List Review Problem List Initiated/Reviewed/Updated: Yes - My Orders Last 24 Hours: My Active Orders 09/20/19 18:26 Ondansetron [Zofran] 4 mg IVPUSH Q4H PRN Sodium Chloride 0.9% [Saline Flush] 10 ml FLUSH ASDIRECTED PRN Resuscitation Status Routine 09/20/19 18:27 Patient Status [ADT] Routine Activity as Tolerated [RC] PFP Communication Order [RC] ASDIRECTED Communication Order [RC] ASDIRECTED Communication Order [RC] ASDIRECTED Communication Order [RC] ASDIRECTED Monitoring [RC] INTERMITTENT Non Stress Test [RC] PER UNIT ROUTINE Notify Provider [RC] ASDIRECTED Notify Provider [RC] PRN Vaginal Exam [RC] ASDIRECTED Vital Signs [RC] ASDIRECTED Electronic Heart Tones Ext w TOCO [WOMSER] Routine Electronic Heart Tones Internal [WOMSER] Per Unit Routine Peripheral IV Insertion Adult [OM.PC] Routine 09/20/19 18:28 Heart Tones [RC] ASDIRECTED Peripheral IV Care [RC] Q2HR 09/20/19 18:29 Blood Glucose Check, Bedside [RC] Q4H 09/20/19 18:30 Lactated Ringers [Ringers, Lactated] 1,000 ml IV ASDIRECTED Oxytocin/Lactated Ringers [Pitocin in LR 10 Units/1,000 ML] 10 unit in 1,000 ml IV .CONTINUOUS Oxytocin/Lactated Ringers [Pitocin in LR 10 Units/1,000 ML] 10 unit in 1,000 ml IV TITRATE 09/20/19 18:40 ANTIBODY IDENTIFICATION [BBK] Routine TYPE AND SCREEN [BBK] Routine 09/20/19 Dinner Regular Diet [DIET] - Assessment Assessment:: PPD#0 - Plan Plan:: * Routine cares * Breast feeding * Assess blood sugar tomorrow, fasting. Will need 2hr GTT at 6 weeks * Assess baby blood type following delivery to see if Rhogam required * Discharge home in 1-2 days
[2019-09-21] MEDS ORDERED: Benzocaine/Menthol 20%-0.5% Spray 56 GM Canister TOP PRN (04:35)
[2019-09-21] MEDS ORDERED: Acetaminophen 325 MG Tab PO PRN (04:35)
[2019-09-21] MEDS ORDERED: Witch Hazel Medicated Pads 40/Jar TOP PRN (04:35)
[2019-09-21] MEDS: Ibuprofen 600 MG Tab PO PRN ×3 (05:05→18:12)
--- NOTE | 2019-09-21 10:29 | PCM48HPAN ---
Post Anesthesia Note - EVALUATION WITHIN 48HRS OF ANESTHETIC Vital Signs in Normal Range: Yes Patient Participated in Evaluation: Yes Respiratory Function Stable: Yes Airway Patent: Yes Cardiovascular Function Stable: Yes Hydration Status Stable: Yes Pain Control Satisfactory: Yes Nausea and Vomiting Control Satisfactory: Yes Mental Status Recovered: Yes (no complaints) Vital Signs: Last Vital Signs Temp 98.0 F 09/20/19 18:27 Pulse 87 09/20/19 18:27 Resp 16 09/20/19 18:27 BP 134/74 09/20/19 18:27 Pulse Ox
[2019-09-22] MEDS: Ibuprofen 600 MG Tab PO PRN (05:16)
--- NOTE | 2019-09-22 09:34 | PCM.DCSUM1 ---
Discharge Summary - Hospital Course Free Text/Narrative:: [facility] LIVE L/D Delivery Note Patient Name: CONNOR GARCIA Date of : 89 Patient Status: Inpatient Attending Provider: Mary Moreno Date: 09/21/19 03:33 Initialization Date: 09/21/19 03:33 L & D Note - General Info Date of Service: 09/21/19 - Delivery Note Labor: Augmented by Oxytocin Delivery Outcome: Livebirth Delivery Method: Spontaneous Vaginal Delivery-Single Infant Delivery Mode: Spontaneous Presentation: Left Occiput Anterior (MARIA VICTORIA) Nuchal Cord: None Anesthesia Type: Epidural Amniotic Fluid Description: Clear Episiotomy Type: None Laceration: 2nd Degree Suture type: Vicryl Suture size: 2-0 Placenta: Intact, Spontaneous Cord: 3 Vessels Estimated Blood Loss: 300 Resuscitation Needed: Yes Grayson: Bulb Syringe, Stimulated, Warmed, [place] Used, Warmer Used Delivery Comments (Free Text/Narrative):: Patient found to be complete and began pushing. With maternal pushing effort head delivered from MARIA VICTORIA presentation. No nuchal cord present. With gentle downward traction shoulders and body delivered. Infant placed on maternal abdomen. Cord clamped and cut. Cord blood obtained. Placenta allowed time to separate and expelled intact. Inspection of the perineum showed a 2nd degree laceration which was repaired with a 2-0 vicryl in the typical fashion. - General Info Date of Service: 09/21/19 - Patient Data Vitals - Most Recent: Last Vital Signs Temp 36.7 C 09/20/19 18:27 Pulse 87 09/20/19 18:27 Resp 16 09/20/19 18:27 BP 134/74 09/20/19 18:27 Pulse Ox Weight - Most Recent: 90.945 kg Lab Results Last 24 Hours: Laboratory Results - last 24 hr 09/20/19 09/20/19 09/20/19 Range/Units 18:40 18:40 18:40 WBC 8.85 (3.98-10.04) K/mm3 RBC 4.29 (3.98-5.22) M/mm3 Hgb 12.1 (11.2-15.7) gm/dl Hct 37.5 (34.1-44.9) % MCV 87.4 (79.4-94.8) fl MCH 28.2 (25.6-32.2) pg MCHC 32.3 (32.2-35.5) g/dl RDW Std Deviation 45.7 (36.4-46.3) fL Plt Count 166 L (182-369) K/mm3 MPV 11.3 (9.4-12.3) fl POC Glucose (70-105) mg/dL RPR Non-reactive (NONREACTIVE) Blood Type A NEGATIVE Gel Antibody Screen Positive 09/20/19 09/21/19 Range/Units 20:34 00:47 WBC (3.98-10.04) K/mm3 RBC (3.98-5.22) M/mm3 Hgb (11.2-15.7) gm/dl Hct (34.1-44.9) % MCV (79.4-94.8) fl MCH (25.6-32.2) pg MCHC (32.2-35.5) g/dl RDW Std Deviation (36.4-46.3) fL Plt Count (182-369) K/mm3 MPV (9.4-12.3) fl POC Glucose 78 81 (70-105) mg/dL RPR (NONREACTIVE) Blood Type Gel Antibody Screen Med Orders - Current: Current Medications Diphenhydramine HCl (Benadryl) 25 mg IVPUSH Q6H PRN PRN Reason: Itching Ephedrine Sulfate (Ephedrine Sulfate) 5 mg IVPUSH ASDIRECTED PRN PRN Reason: HYPOTENTSION Fentanyl (Sublimaze) 100 mcg EPIDUR Q3H PRN PRN Reason: Pain Last Admin: 09/21/19 02:26 Dose: 100 mcg Fentanyl/Bupivacaine HCl (Fentanyl/Bupivacaine/Ns 2 Mcg-0.125% 100 Ml) 100 ml EPIDUR CONTINUOUS PRN PRN Reason: Pain Lactated Ringer's (Ringers, Lactated) 1,000 mls @ 40 mls/hr IV ASDIRECTED ELINOR Last Admin: 09/21/19 02:12 Dose: 40 mls/hr Oxytocin/Lactated Ringer's (Pitocin In Lr 10 Units/1,000 Ml) 10 unit in 1,000 mls @ 12 mls/hr IV TITRATE ELINOR; Protocol Last Admin: 09/20/19 20:26 Dose: 2 munits/min, 12 mls/hr Oxytocin/Lactated Ringer's (Pitocin In Lr 10 Units/1,000 Ml) 10 unit in 1,000 mls @ 500 mls/hr IV .CONTINUOUS ELINOR Ondansetron HCl (Zofran) 4 mg IVPUSH Q4H PRN PRN Reason: Nausea/Vomiting Sodium Chloride (Saline Flush) 10 ml FLUSH ASDIRECTED PRN PRN Reason: Keep Vein Open - Problem List & Annotations (1) 39 weeks gestation of SNOMED Code(s): 64361068 Code(s): Z3A.39 - 39 WEEKS GESTATION OF Status: Acute Current Visit: Yes (2) Gestational diabetes SNOMED Code(s): 96022849 Code(s): O24.419 - GESTATIONAL DIABETES MELLITUS IN , UNSP CONTROL Status: Acute Current Visit: Yes Qualifiers: Gestational diabetes mellitus control: diet-controlled Trimester: third trimester Qualified Code(s): O24.410 - Gestational diabetes mellitus in , diet controlled (3) Prolonged rupture of membranes, greater than 24 hours, delivered SNOMED Code(s): 13754384, 556042149 Code(s): O42.10 - DERICK ROM, ONSET LABOR > 24 HR FOL RUPT, UNSP WEEKS OF GEST Status: Acute Current Visit: Yes (4) Rh negative status during SNOMED Code(s): 755293933 Code(s): O26.899 - OTH RELATED CONDITIONS, UNSPECIFIED TRIMESTER; Z67.91 - UNSPECIFIED BLOOD TYPE, RH NEGATIVE Status: Acute Current Visit: Yes Qualifiers: Trimester: third trimester Qualified Code(s): O26.893 - Other specified related conditions, third trimester; Z67.91 - Unspecified blood type, Rh negative (5) Vaginal delivery SNOMED Code(s): 481807124 Code(s): O80 - ENCOUNTER FOR FULL-TERM UNCOMPLICATED DELIVERY Status: Acute Current Visit: Yes - Problem List Review Problem List Initiated/Reviewed/Updated: Yes - My Orders Last 24 Hours: My Active Orders 09/20/19 18:26 Ondansetron [Zofran] 4 mg IVPUSH Q4H PRN Sodium Chloride 0.9% [Saline Flush] 10 ml FLUSH ASDIRECTED PRN Resuscitation Status Routine 09/20/19 18:27 Patient Status [ADT] Routine Activity as Tolerated [RC] PFP Communication Order [RC] ASDIRECTED Communication Order [RC] ASDIRECTED Communication Order [RC] ASDIRECTED Communication Order [RC] ASDIRECTED Monitoring [RC] INTERMITTENT Non Stress Test [RC] PER UNIT ROUTINE Notify Provider [RC] ASDIRECTED Notify Provider [RC] PRN Vaginal Exam [RC] ASDIRECTED Vital Signs [RC] ASDIRECTED Electronic Heart Tones Ext w TOCO [WOMSER] Routine Electronic Heart Tones Internal [WOMSER] Per Unit Routine Peripheral IV Insertion Adult [OM.PC] Routine 09/20/19 18:28 Heart Tones [RC] ASDIRECTED Peripheral IV Care [RC] Q2HR 09/20/19 18:29 Blood Glucose Check, Bedside [RC] Q4H 09/20/19 18:30 Lactated Ringers [Ringers, Lactated] 1,000 ml IV ASDIRECTED Oxytocin/Lactated Ringers [Pitocin in LR 10 Units/1,000 ML] 10 unit in 1,000 ml IV .CONTINUOUS Oxytocin/Lactated Ringers [Pitocin in LR 10 Units/1,000 ML] 10 unit in 1,000 ml IV TITRATE 09/20/19 18:40 ANTIBODY IDENTIFICATION [BBK] Routine TYPE AND SCREEN [BBK] Routine 09/20/19 Dinner Regular Diet [DIET] - Assessment Assessment:: PPD#0 - Plan Plan:: * Routine cares * Breast feeding * Assess blood sugar tomorrow, fasting. Will need 2hr GTT at 6 weeks * Assess baby blood type following delivery to see if Rhogam required * Discharge home in 1-2 days HPI Initial Comments: [facility] LIVE L/D Delivery Note Patient Name: CONNOR GARCIA Date of : 89 Patient Status: Inpatient Attending Provider: Mary Moreno Date: 09/21/19 03:33 Initialization Date: 09/21/19 03:33 L & D Note - General Info Date of Service: 09/21/19 - Delivery Note Labor: Augmented by Oxytocin Delivery Outcome: Livebirth Infant Delivery Method: Spontaneous Vaginal Delivery-Single Infant Delivery Mode: Spontaneous Presentation: Left Occiput Anterior (MARIA VICTORIA) Nuchal Cord: None Anesthesia Type: Epidural Amniotic Fluid Description: Clear Episiotomy Type: None Laceration: 2nd Degree Suture type: Vicryl Suture size: 2-0 Placenta: Intact, Spontaneous Cord: 3 Vessels Estimated Blood Loss: 300 Resuscitation Needed: Yes [place]: Bulb Syringe, Stimulated, Warmed, [place] Used, Warmer Used Delivery Comments (Free Text/Narrative):: Patient found to be complete and began pushing. With maternal pushing effort head delivered from MARIA VICTORIA presentation. No nuchal cord present. With gentle downward traction shoulders and body delivered. placed on maternal abdomen. Cord clamped and cut. Cord blood obtained. Placenta allowed time to separate and expelled intact. Inspection of the perineum showed a 2nd degree laceration which was repaired with a 2-0 vicryl in the typical fashion. - General Info Date of Service: 09/21/19 - Patient Data Vitals - Most Recent: Last Vital Signs Temp 36.7 C 09/20/19 18:27 Pulse 87 09/20/19 18:27 Resp 16 09/20/19 18:27 BP 134/74 09/20/19 18:27 Pulse Ox Weight - Most Recent: 90.945 kg Lab Results Last 24 Hours: Laboratory Results - last 24 hr 09/20/19 09/20/19 09/20/19 Range/Units 18:40 18:40 18:40 WBC 8.85 (3.98-10.04) K/mm3 RBC 4.29 (3.98-5.22) M/mm3 Hgb 12.1 (11.2-15.7) gm/dl Hct 37.5 (34.1-44.9) % MCV 87.4 (79.4-94.8) fl MCH 28.2 (25.6-32.2) pg MCHC 32.3 (32.2-35.5) g/dl RDW Std Deviation 45.7 (36.4-46.3) fL Plt Count 166 L (182-369) K/mm3 MPV 11.3 (9.4-12.3) fl POC Glucose (70-105) mg/dL RPR Non-reactive (NONREACTIVE) Blood Type A NEGATIVE Gel Antibody Screen Positive 09/20/19 09/21/19 Range/Units 20:34 00:47 WBC (3.98-10.04) K/mm3 RBC (3.98-5.22) M/mm3 Hgb (11.2-15.7) gm/dl Hct (34.1-44.9) % MCV (79.4-94.8) fl MCH (25.6-32.2) pg MCHC (32.2-35.5) g/dl RDW Std Deviation (36.4-46.3) fL Plt Count (182-369) K/mm3 MPV (9.4-12.3) fl POC Glucose 78 81 (70-105) mg/dL RPR (NONREACTIVE) Blood Type Gel Antibody Screen Med Orders - Current: Current Medications Diphenhydramine HCl (Benadryl) 25 mg IVPUSH Q6H PRN PRN Reason: Itching Ephedrine Sulfate (Ephedrine Sulfate) 5 mg IVPUSH ASDIRECTED PRN PRN Reason: HYPOTENTSION Fentanyl (Sublimaze) 100 mcg EPIDUR Q3H PRN PRN Reason: Pain Last Admin: 09/21/19 02:26 Dose: 100 mcg Fentanyl/Bupivacaine HCl (Fentanyl/Bupivacaine/Ns 2 Mcg-0.125% 100 Ml) 100 ml EPIDUR CONTINUOUS PRN PRN Reason: Pain Lactated Ringer's (Ringers, Lactated) 1,000 mls @ 40 mls/hr IV ASDIRECTED ELINOR Last Admin: 09/21/19 02:12 Dose: 40 mls/hr Oxytocin/Lactated Ringer's (Pitocin In Lr 10 Units/1,000 Ml) 10 unit in 1,000 mls @ 12 mls/hr IV TITRATE ELINOR; Protocol Last Admin: 09/20/19 20:26 Dose: 2 munits/min, 12 mls/hr Oxytocin/Lactated Ringer's (Pitocin In Lr 10 Units/1,000 Ml) 10 unit in 1,000 mls @ 500 mls/hr IV .CONTINUOUS ELINOR Ondansetron HCl (Zofran) 4 mg IVPUSH Q4H PRN PRN Reason: Nausea/Vomiting Sodium Chloride (Saline Flush) 10 ml FLUSH ASDIRECTED PRN PRN Reason: Keep Vein Open - Problem List & Annotations (1) 39 weeks gestation of SNOMED Code(s): 44455368 Code(s): Z3A.39 - 39 WEEKS GESTATION OF Status: Acute Current Visit: Yes (2) Gestational diabetes SNOMED Code(s): 31220209 Code(s): O24.419 - GESTATIONAL DIABETES MELLITUS IN , UNSP CONTROL Status: Acute Current Visit: Yes Qualifiers: Gestational diabetes mellitus control: diet-controlled Trimester: third trimester Qualified Code(s): O24.410 - Gestational diabetes mellitus in , diet controlled (3) Prolonged rupture of membranes, greater than 24 hours, delivered SNOMED Code(s): 49301507, 897358862 Code(s): O42.10 - DERICK ROM, ONSET LABOR > 24 HR FOL RUPT, UNSP WEEKS OF GEST Status: Acute Current Visit: Yes (4) Rh negative status during SNOMED Code(s): 696991855 Code(s): O26.899 - OTH RELATED CONDITIONS, UNSPECIFIED TRIMESTER; Z67.91 - UNSPECIFIED BLOOD TYPE, RH NEGATIVE Status: Acute Current Visit: Yes Qualifiers: Trimester: third trimester Qualified Code(s): O26.893 - Other specified related conditions, third trimester; Z67.91 - Unspecified blood type, Rh negative (5) Vaginal delivery SNOMED Code(s): 258736336 Code(s): O80 - ENCOUNTER FOR FULL-TERM UNCOMPLICATED DELIVERY Status: Acute Current Visit: Yes - Problem List Review Problem List Initiated/Reviewed/Updated: Yes - My Orders Last 24 Hours: My Active Orders 09/20/19 18:26 Ondansetron [Zofran] 4 mg IVPUSH Q4H PRN Sodium Chloride 0.9% [Saline Flush] 10 ml FLUSH ASDIRECTED PRN Resuscitation Status Routine 09/20/19 18:27 Patient Status [ADT] Routine Activity as Tolerated [RC] PFP Communication Order [RC] ASDIRECTED Communication Order [RC] ASDIRECTED Communication Order [RC] ASDIRECTED Communication Order [RC] ASDIRECTED Monitoring [RC] INTERMITTENT Non Stress Test [RC] PER UNIT ROUTINE Notify Provider [RC] ASDIRECTED Notify Provider [RC] PRN Vaginal Exam [RC] ASDIRECTED Vital Signs [RC] ASDIRECTED Electronic Heart Tones Ext w TOCO [WOMSER] Routine Electronic Heart Tones Internal [WOMSER] Per Unit Routine Peripheral IV Insertion Adult [OM.PC] Routine 09/20/19 18:28 Heart Tones [RC] ASDIRECTED Peripheral IV Care [RC] Q2HR 09/20/19 18:29 Blood Glucose Check, Bedside [RC] Q4H 09/20/19 18:30 Lactated Ringers [Ringers, Lactated] 1,000 ml IV ASDIRECTED Oxytocin/Lactated Ringers [Pitocin in LR 10 Units/1,000 ML] 10 unit in 1,000 ml IV .CONTINUOUS Oxytocin/Lactated Ringers [Pitocin in LR 10 Units/1,000 ML] 10 unit in 1,000 ml IV TITRATE 09/20/19 18:40 ANTIBODY IDENTIFICATION [BBK] Routine TYPE AND SCREEN [BBK] Routine 09/20/19 Dinner Regular Diet [DIET] - Assessment Assessment:: PPD#0 - Plan Plan:: * Routine cares * Breast feeding * Assess blood sugar tomorrow, fasting. Will need 2hr GTT at 6 weeks * Assess baby blood type following delivery to see if Rhogam required * Discharge home in 1-2 days Brief History: [facility] LIVE . L/D Delivery [facility]. [id number]. Date of : [birth year]Patient Status: Inpatient. Attending Provider: Mary Moreno Number : [id number]. Date: 09/21/19 03:33Initialization Date: 09/21/19 03:33. L & D Note. - General Info. Date of Service: 09/21/19. - Delivery Note. Labor: Augmented by Oxytocin. Delivery Outcome: Livebirth. Delivery Method: Spontaneous Vaginal Delivery-Single. Infant Delivery Mode: Spontaneous. Presentation: Left Occiput Anterior (MARIA VICTORIA). Nuchal Cord: None. Anesthesia Type : Epidural. Amniotic Fluid Description: Clear. Episiotomy Type: None. Laceration: 2nd Degree. Suture type: Vicryl. Suture size: 2-0. Placenta: Intact, Spontaneous. Cord: 3 Vessels. Estimated Blood Loss: 300. Resuscitation Needed: Yes. : Bulb Syringe, Stimulated, Warmed, [place] Used, Warmer Used. Delivery Comments (Free Text/Narrative):: Patient found to be complete and began pushing. With maternal pushing effort head delivered from MARIA VICTORIA presentation. No nuchal cord present. With gentle downward traction shoulders and body delivered. Infant placed on maternal abdomen. Cord clamped and cut. Cord blood obtained. Placenta allowed time to separate and expelled intact. Inspection of the perineum showed a 2nd degree laceration which was repaired with a 2-0 vicryl in the typical fashion. - General Info. Date of Service: 09/21/19. - Patient Data. Vitals - Most Recent : Last Vital Signs. Temp 36.7 C 09/20/19 18:27. Pulse 87 09/20/19 18:27. Resp 16 09/20/19 18:27. BP 134/74 09/20/19 18:27. Pulse Ox. Weight - Most Recent: 90.945 kg. Lab Results Last 24 Hours: Laboratory Results - last 24 hr. 09/19/2002/06/2003Range/Units. 18:4018:4018:40. WBC 8.85 (3.98- 10.04) K/mm3. RBC 4.29 (3.98-5.22) M/mm3. Hgb 12.1 (11.2-15.7) gm/dl. Hct 37.5 (34.1-44.9) %. MCV 87.4 (79.4-94.8) fl. MCH 28.2 (25.6-32.2) pg. MCHC 32.3 (32.2-35.5) g/dl. RDW Std Deviation 45.7 (36.4-46.3) fL. Plt Count 166 L (182-369) K/mm3. MPV 11.3 (9.4-12.3) fl. POC Glucose (70-105) mg/dL. RPR Non-reactive (NONREACTIVE). Blood Type A NEGATIVE. Gel Antibody Screen Positive. 09/19/2002/Range/Units. 20:3400:47. WBC (3.98-10.04) K /mm3. RBC (3.98-5.22) M/mm3. Hgb (11.2-15.7) gm/dl. Hct (34.1-44.9) %. MCV (79.4-94.8) fl. MCH (25.6-32.2) pg. MCHC (32.2-35.5) g/dl. RDW Std Deviation (36.4-46.3) fL. Plt Count (182-369) K/mm3. MPV (9.4-12.3) fl. POC Glucose 78 81 (70-105) mg/dL. RPR (NONREACTIVE). Blood Type. Gel Antibody Screen. Med Orders - Current: Current Medications. Diphenhydramine HCl (Benadryl) 25 mg IVPUSH Q6H PRN. PRN Reason: Itching. Ephedrine Sulfate ( Ephedrine Sulfate) 5 mg IVPUSH ASDIRECTED PRN. PRN Reason: HYPOTENTSION. Fentanyl (Sublimaze) 100 mcg EPIDUR Q3H PRN. PRN Reason: Pain. Last Admin: 02:26 Dose: 100 mcg. Fentanyl/Bupivacaine HCl (Fentanyl/Bupivacaine/Ns 2 Mcg-0.125% 100 Ml) 100 ml EPIDUR CONTINUOUS PRN. PRN Reason: Pain. Lactated Ringer's (Ringers, Lactated) 1,000 mls @ 40 mls/hr IV ASDIRECTED ELINOR. Last Admin: 09/21/19 02:12 Dose: 40 mls/hr. Oxytocin/Lactated Ringer's ( Pitocin In Lr 10 Units/1,000 Ml) 10 unit in 1,000 mls @ 12 mls/hr IV TITRATE ELINOR; Protocol. Last Admin: 09/20/19 20:26 Dose: 2 munits/min, 12 mls/hr. Oxytocin/Lactated Ringer's (Pitocin In Lr 10 Units/1,000 Ml) 10 unit in 1,000 mls @ 500 mls/hr IV .CONTINUOUS ELINOR. Ondansetron HCl (Zofran) 4 mg IVPUSH Q4H PRN. PRN Reason: Nausea/Vomiting. Sodium Chloride (Saline Flush) 10 ml FLUSH ASDIRECTED PRN. PRN Reason: Keep Vein Open. - Problem List & Annotations. (1 ) 39 weeks gestation of . SNOMED Code(s): 96723023. Code(s): Z3A.39 - 39 WEEKS GESTATION OF Status: Acute Current Visit: Yes. (2) Gestational diabetes. SNOMED Code(s): 22641571. Code(s): O24.419 - GESTATIONAL DIABETES MELLITUS IN , UNSP CONTROL Status: Acute Current Visit: Yes. Qualifiers: Gestational diabetes mellitus control: diet- controlled Trimester: third trimester Qualified Code(s): O24.410 - Gestational diabetes mellitus in , diet controlled. (3) Prolonged rupture of membranes, greater than 24 hours, delivered. SNOMED Code(s): 05400551, 630949009. Code(s): O42.10 - DERICK ROM, ONSET LABOR > 24 HR FOL RUPT, UNSP WEEKS OF GEST Status: Acute Current Visit: Yes. (4) Rh negative status during . SNOMED Code(s): 728975053. Code(s): O26.899 - OTH RELATED CONDITIONS, UNSPECIFIED TRIMESTER; Z67.91 - UNSPECIFIED BLOOD TYPE, RH NEGATIVE Status: Acute Current Visit: Yes. Qualifiers: Trimester : third trimester Qualified Code(s): O26.893 - Other specified related conditions, third trimester; Z67.91 - Unspecified blood type, Rh negative. (5) Vaginal delivery. SNOMED Code(s): 270577523. Code(s): O80 - ENCOUNTER FOR FULL-TERM UNCOMPLICATED DELIVERY Status: Acute Current Visit: Yes. - Problem List Review. Problem List Initiated/Reviewed/Updated: Yes. - My Orders. Last 24 Hours: My Active Orders. 09/20/19 18:26. Ondansetron [ Zofran] 4 mg IVPUSH Q4H PRN. Sodium Chloride 0.9% [Saline Flush] 10 ml FLUSH ASDIRECTED PRN. Resuscitation Status Routine. 09/20/19 18:27. Patient Status [ADT] Routine. Activity as Tolerated [RC] PFP. Communication Order [RC ] ASDIRECTED. Communication Order [RC] ASDIRECTED. Communication Order [RC] ASDIRECTED. Communication Order [RC] ASDIRECTED. Monitoring [RC] INTERMITTENT. Non Stress Test [RC] PER UNIT ROUTINE. Notify Provider [RC ] ASDIRECTED. Notify Provider [RC] PRN. Vaginal Exam [RC] ASDIRECTED. Vital Signs [RC] ASDIRECTED. Electronic Heart Tones Ext w TOCO [WOMSER] Routine. Electronic Heart Tones Internal [WOMSER] Per Unit Routine. Peripheral IV Insertion Adult [OM.PC] Routine. 09/20/19 18:28. Heart Tones [RC] ASDIRECTED. Peripheral IV Care [RC] Q2HR. 09/20/19 18:29. Blood Glucose Check, Bedside [RC] Q4H. 09/20/19 18:30. Lactated Ringers [Ringers, Lactated] 1,000 ml IV ASDIRECTED. Oxytocin/Lactated Ringers [Pitocin in LR 10 Units/1,000 ML] 10 unit in 1,000 ml IV .CONTINUOUS. Oxytocin/Lactated Ringers [ Pitocin in LR 10 Units/1,000 ML] 10 unit in 1,000 ml IV TITRATE. 09/20/19 18: 40. ANTIBODY IDENTIFICATION [BBK] Routine. TYPE AND SCREEN [BBK] Routine. 06/29 Dinner. Regular Diet [DIET]. - Assessment. Assessment:: PPD#0. - Plan. Plan:: Routine cares. Breast feeding. Assess blood sugar tomorrow, fasting. Will need 2hr GTT at 6 weeks . Assess baby blood type following delivery to see if Rhogam required. Discharge home in 1-2 days - Discharge Data Discharge Date: 09/22/19 Discharge Disposition: Home, Self-Care 01 Condition: Good - Referral to Home Health Primary Care Physician: Mary Moreno MD - Discharge Diagnosis/Problem(s) (1) 39 weeks gestation of SNOMED Code(s): 41884082 ICD Code: Z3A.39 - 39 WEEKS GESTATION OF Status: Acute Current Visit: Yes (2) Gestational diabetes SNOMED Code(s): 16385810 ICD Code: O24.419 - GESTATIONAL DIABETES MELLITUS IN , UNSP CONTROL Status: Acute Current Visit: Yes Qualifiers: Gestational diabetes mellitus control: diet-controlled Trimester: third trimester Qualified Code(s): O24.410 - Gestational diabetes mellitus in , diet controlled (3) Prolonged rupture of membranes, greater than 24 hours, delivered SNOMED Code(s): 65841969, 070507453 ICD Code: O42.10 - DERICK ROM, ONSET LABOR > 24 HR FOL RUPT, UNSP WEEKS OF GEST Status: Acute Current Visit: Yes (4) Rh negative status during SNOMED Code(s): 901335587 ICD Code: O26.899 - OTH RELATED CONDITIONS, UNSPECIFIED TRIMESTER; Z67.91 - UNSPECIFIED BLOOD TYPE, RH NEGATIVE Status: Acute Current Visit: Yes Qualifiers: Trimester: third trimester Qualified Code(s): O26.893 - Other specified related conditions, third trimester; Z67.91 - Unspecified blood type, Rh negative (5) Vaginal delivery SNOMED Code(s): 520957406 ICD Code: O80 - ENCOUNTER FOR FULL-TERM UNCOMPLICATED DELIVERY Status: Acute Current Visit: Yes - Patient Summary/Data Complications: None Consults: None Hospital Course: Uneventful - Patient Instructions Diet: Usual Diet as Tolerated Driving: Do Not Drive (x48 hrs) Showering/Bathing: May Shower Notify Provider of: Fever, Increased Pain, Swelling and Redness, Drainage, Nausea and/or Vomiting - Discharge Plan *PRESCRIPTION DRUG MONITORING PROGRAM REVIEWED*: Not Applicable *COPY OF PRESCRIPTION DRUG MONITORING REPORT IN PATIENT KENYA: Not Applicable Home Medications: Home Meds [id number]/Iron Fumarate/FA/DSS [ 19 Tablet] 1 tab PO DAILY 09/20/19 [ History] Acetaminophen [Tylenol] 650 mg PO Q6H PRN tablet 09/22/19 [Rx] Ibuprofen [Motrin] 600 mg PO Q6H PRN tablet 09/22/19 [Rx] witch Jewell [Tucks] 1 pad TOP ASDIRECTED PRN pad 09/22/19 [Rx] Referrals: Mary Moreno MD [Primary Care Provider] - (call Tuesday for appointment) - Discharge Summary/Plan Comment DC Time >30 min.: No - Patient Data Vitals - Most Recent: Last Vital Signs Temp 98.2 F 09/22/19 05:13 Pulse 71 09/22/19 05:13 Resp 16 09/22/19 05:13 BP 104/71 09/22/19 05:13 Pulse Ox 98 09/22/19 05:13 Weight - Most Recent: 200 lb 8 oz I&O - Last 24 hours: Intake & Output 09/21/19 09/22/19 09/22/19 22:59 06:59 14:59 Intake Total 320 0 Balance 320 0 Lab Results - Last 24 hrs: Laboratory Results - last 24 hr 09/20/19 Range/Units 18:40 Blood Type A NEGATIVE Gel Antibody Screen Positive Med Orders - Current: Current Medications Acetaminophen (Tylenol) 650 mg PO Q4H PRN PRN Reason: mild pain or fever Benzocaine/Menthol (Dermoplast Pain Relief [place]) 0 gm TOP ASDIRECTED PRN PRN Reason: Perineal Comfort Measure Last Admin: 09/21/19 05:06 Dose: 1 canister Ibuprofen (Motrin) 600 mg PO Q6H PRN PRN Reason: Mild pain or fever Last Admin: 09/22/19 05:16 Dose: 600 mg Witch Jewell (Tucks) 1 pad TOP ASDIRECTED PRN PRN Reason: Perineal Comfort Measure Last Admin: 09/21/19 05:06 Dose: 1 tub Discontinued Medications Bupivacaine HCl (Sensorcaine-Mpf 0.25%) 10 ml .ROUTE .[facility] ONE Stop: 09/20/19 00:01 Diphenhydramine HCl (Benadryl) 25 mg IVPUSH Q6H PRN PRN Reason: Itching Ephedrine Sulfate (Ephedrine Sulfate) 5 mg IVPUSH ASDIRECTED PRN PRN Reason: HYPOTENTSION Fentanyl (Sublimaze) 100 mcg EPIDUR Q3H PRN PRN Reason: Pain Last Admin: 09/21/19 02:26 Dose: 100 mcg Fentanyl/Bupivacaine HCl (Fentanyl/Bupivacaine/Ns 2 Mcg-0.125% 100 Ml) 100 ml EPIDUR CONTINUOUS PRN PRN Reason: Pain Lactated Ringer's (Ringers, Lactated) 1,000 mls @ 40 mls/hr IV ASDIRECTED ELINOR Last Admin: 09/21/19 02:12 Dose: 40 mls/hr Oxytocin/Lactated Ringer's (Pitocin In Lr 10 Units/1,000 Ml) 10 unit in 1,000 mls @ 12 mls/hr IV TITRATE ELINOR; Protocol Last Admin: 09/20/19 20:26 Dose: 2 munits/min, 12 mls/hr Oxytocin/Lactated Ringer's (Pitocin In Lr 10 Units/1,000 Ml) 10 unit in 1,000 mls @ 500 mls/hr IV .CONTINUOUS ELINOR Ondansetron HCl (Zofran) 4 mg IVPUSH Q4H PRN PRN Reason: Nausea/Vomiting Sodium Chloride (Saline Flush) 10 ml FLUSH ASDIRECTED PRN PRN Reason: Keep Vein Open
== END 2019-09-22 14:00 | disposition home or self-care (01) | DRG 560 ==
LOC: JD.OBCHECK 17:52 → JD.OB 17:53 → JD.OBCHECK 20:20 → OBSVTOIN 09-21 03:18 → JD.MS 09-21 03:19 → JD.OB 09-21 15:12
PROVIDERS: ADMIT Obstetrics & Gynecology; ATTEND Obstetrics & Gynecology
PROC: 10E0XZZ Delivery of Products of Conception, External Approach (ICD-10-PCS; principal; 2019-09-21)
PROC: 0KQM0ZZ Repair Perineum Muscle, Open Approach (ICD-10-PCS; 2019-09-21)
PROC: 3E0R3BZ Introduction of Anesthetic Agent into Spinal Canal, Percutaneous Approach (ICD-10-PCS; 2019-09-21)
DX: O24.410 Gestational diabetes mellitus in pregnancy, diet controlled (principal); O42.113 Preterm premature rupture of membranes, onset of labor more than 24 hours following rupture, third trimester; O70.1 Second degree perineal laceration during delivery; Z3A.39 39 weeks gestation of pregnancy; Z37.0 Single live birth; Z91.013 Allergy to seafood; Z79.899 Other long term (current) drug therapy
CPT/HCPCS: 36415; 59025; 59409; 82962; 85027; 86592; A9270-GY; J2590; J3010; J3490; J7120